=== PATIENT | male | born 1950 | race Caucasian/White ===

== ENCOUNTER 2017-06-17 17:44 | Emergency (ER) | payer OTHER ==
[2017-06-17 17:46] VITALS: BP 192/102; PULSE 82; RESP 14; TEMP 98.6; O2SAT 98
[2017-06-17 18:30] LABS: BILIRUBIN, URINE NEG (NEG); BLOOD, URINE NEG (NEG); GLUCOSE,URINE NEG (NEG); KETONE, URINE NEG (NEG); MUCUS URINE FEW /lpf (OCC); NITRITE,URINE NEG (NEG); URINE COLOR YELLOW (YELLW/STRAW); URINE LEUKOCYTE ESTERASE NEG (NEG)
[2017-06-17 18:33] LABS: AUTOMATED NEUTROPHIL # 4.8 TH/MM3 (1.8-7.7); BASOPHIL # 0.1 TH/MM3 (0-0.2); EOSINOPHIL # 0.3 TH/MM3 (0-0.4); EOSINOPHIL % 4.3 % (0.0-4.0); HEMATOCRIT 48.5 % (39.0-51.0); HEMOGLOBIN 17.4 GM/DL (13.0-17.0); LYMPHOCYTE # 1.5 TH/MM3 (1.0-4.8); MEAN CELL VOLUME 91.3 FL (80.0-100.0); MEAN CORPUSCULAR HEMOGLOBIN 32.7 PG (27.0-34.0); MEAN CORPUSCULAR HGB CONC 35.8 % (32.0-36.0); MEAN PLATELET VOLUME 7.3 FL (7.0-11.0); MONO % 9.6 % (0.0-8.0); MONOCYTE # 0.7 TH/MM3 (0-0.9); NEUT % 65.1 % (16.0-70.0); PLATELET COUNT 266 TH/MM3 (150-450); RED BLOOD COUNT 5.31 MIL/MM3 (4.50-5.90); RED CELL DISTRIBUTION WIDTH 13.6 % (11.6-17.2); WHITE BLOOD COUNT 7.4 TH/MM3 (4.0-11.0)
[2017-06-17 18:40] LABS: PROTHROMBIN TIME - PATIENT 10.2 SEC (9.8-11.6)
[2017-06-17 18:42] LABS: ALBUMIN 4.6 GM/DL (3.4-5.0); AST (GOT) 25 U/L (15-37); BICARBONATE 28.5 MEQ/L (21.0-32.0); BLOOD UREA NITROGEN 24 MG/DL (7-18); CALCIUM 9.2 MG/DL (8.5-10.1); CHLORIDE 108 MEQ/L (98-107); GLOMERULAR FILTRATION RATE 51 ML/MIN (>89); GLUCOSE,RANDOM 97 MG/DL (74-106); SODIUM (NA) 142 MEQ/L (136-145)
[2017-06-17 18:43] LABS: ALT (GPT) 36 U/L (12-78)
[2017-06-17 18:45] LABS: ALKALINE PHOSPHATASE 88 U/L (45-117); TOTAL BILIRUBIN ADULT 0.5 MG/DL (0.2-1.0); TOTAL PROTEIN 7.9 GM/DL (6.4-8.2)
[2017-06-17] MEDS ORDERED: SODIUM CHLORIDE 0.9% FLUSH 10 ML FLUSH IV FLUSH PRN (21:00)
--- NOTE | 2017-06-17 21:14 | PD ---
HPI Chief Complaint: Flank/Kidney Pain Time Seen by Provider: 20:50 Travel History International Travel<30 days: No Contact w/Intl Traveler<30days: No Traveled to known affect area: No History of Present Illness HPI 67-year-old male here for evaluation of right upper quadrant abdominal pain radiating to his right flank. The patient reports that he experienced the pain at around 3:00 PM today. The pain resolved, then returned a couple hours later. Currently he states the pain is mild. There are no modifying factors. He denies urinary symptoms such as dysuria or hematuria. No history of abdominal surgeries. No fevers or chills. No nausea or vomiting. No rash. No paresthesias or motor deficits. PFSH Past Medical History Cancer: Yes (SKIN CANCER TIP NOSE ) Diabetes: No Diminished Hearing: No Glaucoma: No Hepatitis: No Hiatal Hernia: No Hypertension: No Past Surgical History Oral Surgery: Yes (TONSILS ORCHIECTOMY ) Other Surgery: Yes (SKIN CA NOSE ) Social History Alcohol Use: Yes (2-4 BEERS, ON OCCASION) Tobacco Use: No (1989) Substance Use: No Allergies-Medications (Allergen,Severity, Reaction): Coded Allergies: No Known Allergies (Unverified Allergy, Unknown, 06/17/17) Reported Meds & Prescriptions Reported Meds & Active Scripts Active No Active Prescriptions or Reported Medications Review of Systems Except as stated in HPI: all other systems reviewed are Neg Physical Exam Narrative GENERAL: Well-developed, well-nourished, comfortable, no apparent distress. SKIN: Focused skin assessment warm/dry. No rash. HEAD: Atraumatic. Normocephalic. EYES: Pupils equal and round. No scleral icterus. No injection or drainage. ENT: No nasal bleeding or discharge. Mucous membranes pink and moist. NECK: Trachea midline. No JVD. CARDIOVASCULAR: Regular rate and rhythm. RESPIRATORY: No accessory muscle use. Clear to auscultation. Breath sounds equal bilaterally. GASTROINTESTINAL: Abdomen soft, nondistended. Mild right upper quadrant tenderness without peritoneal signs. Rest of abdomen is soft and nontender. Normal bowel sounds. MUSCULOSKELETAL: No obvious deformities. No clubbing. No cyanosis. No edema. NEUROLOGICAL: Awake and alert. No obvious cranial nerve deficits. Motor grossly within normal limits. Normal speech. PSYCHIATRIC: Appropriate mood and affect; insight and judgment normal. Data Data Last Documented VS Vital Signs Date Time Temp Pulse Resp B/P (MAP) Pulse Ox O2 Delivery O2 Flow Rate FiO2 06/17/17 17:46 98.6 82 14 192/102 (132) 98 Orders Orders Complete Blood Count With Diff (06/17/17 18:06) Comprehensive Metabolic Panel (06/17/17 18:06) Lipase (06/17/17 18:06) Prothrombin Time / Inr (Pt) (06/17/17 18:06) Act Partial Throm Time (Ptt) (06/17/17 18:06) Urinalysis - C+S If Indicated (06/17/17 18:06) Ct Abd/Pel W Iv Contrast(Rout) (06/17/17 20:58) Iv Access Insert/Monitor (06/17/17 20:58) Sodium Chloride 0.9% Flush (Ns Flush) (06/17/17 21:00) Iohexol 350 Inj (Omnipaque 350 Inj) (06/17/17 21:59) Us Abdomen Gallbladder (06/17/17 ) Labs Laboratory Tests Test 06/17/17 18:06 06/17/17 18:16 Urine Color YELLOW Urine Turbidity CLEAR Urine pH 6.0 Urine Specific [place] 1.028 Urine Protein TRACE mg/dL Urine Glucose (UA) NEG mg/dL Urine Ketones NEG mg/dL Urine Occult Blood NEG Urine Nitrite NEG Urine Bilirubin NEG Urine Urobilinogen 2.0 MG/DL Urine Leukocyte Esterase NEG Urine RBC 1 /hpf Urine WBC LESS THAN 1 /hpf Urine Mucus FEW /lpf Microscopic Urinalysis Comment CULT NOT INDICATED White Blood Count 7.4 TH/MM3 Red Blood Count 5.31 MIL/MM3 Hemoglobin 17.4 GM/DL Hematocrit 48.5 % Mean Corpuscular Volume 91.3 FL Mean Corpuscular Hemoglobin 32.7 PG Mean Corpuscular Hemoglobin Concent 35.8 % Red Cell Distribution Width 13.6 % Platelet Count 266 TH/MM3 Mean Platelet Volume 7.3 FL Neutrophils (%) (Auto) 65.1 % Lymphocytes (%) (Auto) 20.0 % Monocytes (%) (Auto) 9.6 % Eosinophils (%) (Auto) 4.3 % Basophils (%) (Auto) 1.0 % Neutrophils # (Auto) 4.8 TH/MM3 Lymphocytes # (Auto) 1.5 TH/MM3 Monocytes # (Auto) 0.7 TH/MM3 Eosinophils # (Auto) 0.3 TH/MM3 Basophils # (Auto) 0.1 TH/MM3 CBC Comment DIFF FINAL Differential Comment Prothrombin Time 10.2 SEC Prothromb Time International Ratio 1.0 RATIO Activated Partial Thromboplast Time 24.7 SEC Blood Urea Nitrogen 24 MG/DL Creatinine 1.40 MG/DL Random Glucose 97 MG/DL Total Protein 7.9 GM/DL Albumin 4.6 GM/DL Calcium Level 9.2 MG/DL Alkaline Phosphatase 88 U/L Aspartate Amino Transf (AST/SGOT) 25 U/L Alanine Aminotransferase (ALT/SGPT) 36 U/L Total Bilirubin 0.5 MG/DL Sodium Level 142 MEQ/L Potassium Level 4.2 MEQ/L Chloride Level 108 MEQ/L Carbon Dioxide Level 28.5 MEQ/L Anion Gap 6 MEQ/L Estimat Glomerular Filtration Rate 51 ML/MIN Lipase 129 U/L MDM Medical Decision Making Medical Screen Exam Complete: Yes Emergency Medical Condition: Yes Differential Diagnosis Nephrolithiasis, ureterolithiasis, pyelonephritis, cholelithiasis, cholecystitis , pancreatitis, dissection, AAA Narrative Course Initial vital signs show heart rate 82, blood pressure 192/102, pulse ox 98% on room air, tympanic temp of 98.6F. CBC: WBC 7.4, hemoglobin 17.4, hematocrit 40.5, platelets 266. CMP is remarkable for BUN 24, creatinine 1.4, GFR 51, otherwise unremarkable. Lipase is 129. UA is not suggestive of UTI, no hematuria. CT abdomen pelvis: CONCLUSION: 1. There are multiple calcified gallstones within the gallbladder. No definite inflammatory changes are seen around the gallbladder by CT imaging. 2. Degenerative changes within the spine. 3. No findings to indicate bowel obstruction are seen. Right upper quadrant ultrasound ordered to further evaluate for possible cholecystitis. Right upper quadrant ultrasound: CONCLUSION: 1. Cholelithiasis and sludge in the gallbladder with no definite wall thickening or pericholecystic fluid. 2. Enlarged liver with moderate hepatic steatosis. The patient and the patient's were made aware of all findings. He is resting comfortably. He is stable for discharge home with outpatient follow-up with a primary care physician this week. I will also given the name of the general surgeon solution design and analysis manager with him to make an appointment with regarding his biliary colic. He was advised to avoid greasy/fatty foods. He was informed on when to return to the emergency department. He verbalizes understanding and agreement with plan. Diagnosis Primary Impression: Cholelithiasis Qualified Codes: K80.20 - Calculus of gallbladder without cholecystitis without obstruction Additional Impression: Biliary colic Referrals: Johnny Huggins MD 1 week General surgeon Primary Care Physician 3 days Additional Instructions: Follow-up with a primary care physician this week. Follow-up with general surgeon Dr. Huggins or a general surgeon of your choice this week. Return to the emergency department for worsening symptoms or any other concerns. Scripts No Active Prescriptions or Reported Meds Disposition: 01 DISCHARGE HOME Condition: Stable Ian York MD Jun 17, 2017 21:14
[2017-06-17] MEDS ORDERED: IOHEXOL 350 MG/ML 10 ML VIAL (for RAD DIAG) IVCONTRAST ONE (21:59)
--- NOTE | 2017-06-17 22:09 | RADRPT ---
EXAM DATE/TIME: 06/17/2017 21:54 [facility] COMPARISON: No previous studies available for comparison. INDICATIONS : Right upper quadrant pain. IV CONTRAST: 100 cc Omnipaque 350 (iohexol) IV ORAL CONTRAST: No oral contrast ingested. RADIATION DOSE: 16.19 CTDIvol (mGy) MEDICAL HISTORY : None SURGICAL HISTORY : None. ENCOUNTER: Initial ACUITY: 1 day PAIN SCALE: 6/10 LOCATION: Right upper quadrant TECHNIQUE: Volumetric scanning of the abdomen and pelvis was performed. Using automated exposure control and ad justment of the mA and/or kV according to patient size, radiation dose was kept as low as reasonably achievable to obtain optimal diagnostic quality images. DICOM format image data is available electro nically for review and comparison. FINDINGS: There are COPD changes within the lung bases. The appearance of the liver, spleen, pancreas, adrenal glands and right kidney is within normal limit s. Note is made of 2 small simple cyst arising from the left kidney. These measure 1.0 CM and 0.5 CM respectively. There are multiple calcified gallstones in the dependent portion of the gallbladder. The abdominal aorta is normal in caliber. There is no retroperitoneal adenopathy. No free air or free fluid is identified. The visualized loops of small and large bowel are unremarkable. There is no free fluid within the pelvis. No iliac or inguinal adenopathy is seen. The visualized bony structures demonstrate degenerative changes but are otherwise intact. CONCLUSION: 1. There are multiple calcified gallstones within the gallbladder. No definite inflammatory changes a re seen around the gallbladder by CT imaging. 2. Degenerative changes within the spine. 3. No findings to indicate bowel obstruction are seen. Martin Peterson MD on June 17, 2017 at 22:04 Board Certified Radiologist. This report was verified electronically.
--- NOTE | 2017-06-18 00:48 | RADRPT ---
EXAM DATE/TIME: 06/17/2017 23:46 [facility] COMPARISON: CT ABDOMEN & PELVIS W CONTRAST, June 17, 2017, 21:54. INDICATIONS : Right upper quadrant pain. MEDICAL HISTORY : Arthritis. Skin cancer. SURGICAL HISTORY : Tonsillectomy. Orchiectomy. Orthopedic surgery, left ankle and thumb. ENCOUNTER: Initial ACUITY: 1 day PAIN SCORE: 4/10 LOCATION: Right upper quadrant MEASUREMENTS: LIVER: 21.0 cm length COMMON DUCT: 7 mm RIGHT KIDNEY: 10.9 x 5.6 x 5.2 cm FINDINGS: LIVER: The liver is enlarged measuring up to 21 cm with no focal mass or ductal dilatation. There is diffuse increased echogenicity. There is no ascites. Visualization was suboptimal. COMMON DUCT: No intraluminal mass or stone visualized. GALLBLADDER: Normal in size and wall thickness. There are several echogenic gallstones with posterior shadowing as well as apparent sludge. There was a negative sonographic Paiz sign. PANCREAS: The visualized portions are within normal limits. RIGHT KIDNEY: No evidence of hydronephrosis, stone, or mass. CONCLUSION: 1. Cholelithiasis and sludge in the gallbladder with no definite wall thickening or pericholecystic f luid. 2. Enlarged liver with moderate hepatic steatosis. Daniel Blair MD on June 18, 2017 at 0:42 Board Certified Radiologist. This report was verified electronically.
[2017-06-18 01:22] VITALS: BP 134/92
== END 2017-06-18 01:23 | disposition home or self-care (01) ==
LOC: NEPD 17:44
DX: K80.70 Calculus of gallbladder and bile duct without cholecystitis without obstruction (principal)
CPT/HCPCS: 74177; 76705; 80053; 81001; 83690; 85025; 85610; 85730; 99285; Q9967

== ENCOUNTER 2017-07-16 16:51 | Emergency (ER) | payer OTHER ==
[~2017-07-16] VITALS: Ht 182.9 cm; Wt 140.0 kg
[2017-07-16 16:52] VITALS: BP 164/99; PULSE 75; RESP 19; TEMP 97.5; O2SAT 95
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
[2017-07-16 17:05] VITALS: BP 167/96; PULSE 77; RESP 20; O2SAT 97
[2017-07-16] MEDS ORDERED: SODIUM CHLORIDE 0.9% FLUSH 10 ML FLUSH IV FLUSH PRN (17:15)
[2017-07-16 17:35] VITALS: O2SAT 98
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
[2017-07-16 18:19] LABS: AUTOMATED NEUTROPHIL # 7.8 TH/MM3 (1.8-7.7); BASOPHIL # 0.1 TH/MM3 (0-0.2); BASOPHIL % 0.6 % (0.0-2.0); EOSINOPHIL # 0.1 TH/MM3 (0-0.4); EOSINOPHIL % 1.3 % (0.0-4.0); HEMATOCRIT 42.9 % (39.0-51.0); HEMOGLOBIN 15.2 GM/DL (13.0-17.0); LYMPH % 8.3 % (9.0-44.0); LYMPHOCYTE # 0.8 TH/MM3 (1.0-4.8); MEAN CELL VOLUME 90.8 FL (80.0-100.0); MEAN CORPUSCULAR HEMOGLOBIN 32.2 PG (27.0-34.0); MEAN CORPUSCULAR HGB CONC 35.5 % (32.0-36.0); MEAN PLATELET VOLUME 8.3 FL (7.0-11.0); MONO % 6.5 % (0.0-8.0); MONOCYTE # 0.6 TH/MM3 (0-0.9); NEUT % 83.3 % (16.0-70.0); PLATELET COUNT 236 TH/MM3 (150-450); RED BLOOD COUNT 4.72 MIL/MM3 (4.50-5.90); RED CELL DISTRIBUTION WIDTH 13.3 % (11.6-17.2); WHITE BLOOD COUNT 9.3 TH/MM3 (4.0-11.0)
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
[2017-07-16] MEDS ORDERED: IBUP-232 PO (18:25)
[2017-07-16] MEDS ORDERED: CYCL10TA PO (18:25)
[2017-07-16] MEDS ORDERED: TRAM50TA PO (18:25)
[2017-07-16 18:31] LABS: BILIRUBIN, URINE NEG (NEG); BLOOD, URINE NEG (NEG); GLUCOSE,URINE NEG (NEG); HYALINE CAST, URINE 3 /lpf (RARE); KETONE, URINE NEG (NEG); MUCUS URINE FEW /lpf (OCC); NITRITE,URINE NEG (NEG); PH, URINE 5.5 (5.0-8.5); URINE COLOR YELLOW (YELLW/STRAW); URINE LEUKOCYTE ESTERASE NEG (NEG)
[2017-07-16 18:35] LABS: AST (GOT) 24 U/L (15-37); BICARBONATE 24.5 MEQ/L (21.0-32.0); BLOOD UREA NITROGEN 20 MG/DL (7-18); CALCIUM 8.7 MG/DL (8.5-10.1); CHLORIDE 105 MEQ/L (98-107); CREATININE 1.23 MG/DL (0.60-1.30); GLOMERULAR FILTRATION RATE 59 ML/MIN (>89); GLUCOSE,RANDOM 89 MG/DL (74-106); SODIUM (NA) 140 MEQ/L (136-145)
[2017-07-16 18:38] LABS: ALKALINE PHOSPHATASE 62 U/L (45-117); ALT (GPT) 39 U/L (12-78); TOTAL BILIRUBIN ADULT 0.5 MG/DL (0.2-1.0)
== END 2017-07-16 18:57 | disposition home or self-care (01) ==
LOC: NEPD 16:51
DX: S20.211A Contusion of right front wall of thorax, initial encounter (principal); S50.11XA Contusion of right forearm, initial encounter; S50.12XA Contusion of left forearm, initial encounter; M25.561 Pain in right knee; M25.562 Pain in left knee; V53.5XXA Driver of pick-up truck or van injured in collision with car, pick-up truck or van in traffic accident, initial encounter; W22.10XA Striking against or struck by unspecified automobile airbag, initial encounter; Y92.410 Unspecified street and highway as the place of occurrence of the external cause
CPT/HCPCS: 71101; 73564; 80053; 81001; 85025; 99284